=== PATIENT | male | born 1940 | race Caucasian/White ===

== ENCOUNTER 2016-05-18 06:00 | Day surgery (SDC) | payer OTHER ==
[~2016-05-18 06:00] MED LIST: ACETAMINOPHEN 325 MG ONE
[2016-05-18] MEDS: PROPARACAINE HCL 0.5% OPHTHALMIC SOL ONE ×3 (06:28→07:42)
[2016-05-18] MEDS: CYCLOPENTOLATE 1% SOL ONE ×2 (06:28→06:47)
[2016-05-18] MEDS: PHENYLEPHRINE HCL 10% OPHTHAL SOL ONE ×2 (06:28→06:47)
[2016-05-18] MEDS: NEPAFENAC 1.7 ML DROPS.SUSP LEFTEYE ONE ×2 (06:29→06:47)
[2016-05-18] MEDS: GATIFLOXACIN 2.5 ML DROP SOL LEFTEYE ONE ×4 (06:29→08:20)
[2016-05-18] MEDS ORDERED: MIDAZOLAM 2 MG/2 ML SOL ONE (07:03)
[2016-05-18] MEDS ORDERED: FENTANYL CITRATE 50 MCG/ML SOL ONE (07:03)
[2016-05-18] MEDS ORDERED: BSS W/ 0.25MG P.F. EPI 1 BOTTLE ONE (07:04)
[2016-05-18] MEDS ORDERED: LIDOCAINE HCL 1% MPF SOL ONE (07:04)
[2016-05-18] MEDS ORDERED: POVIDONE IODINE 5% SOL ONE (07:04)
[2016-05-18] MEDS ORDERED: TRYPAN BLUE 0.5 ML SOL IO ONE (07:04)
[2016-05-18] MEDS ORDERED: ACETAZOLAMIDE 500 MG CER ONE (07:55)
[2016-05-18 08:38] VITALS: PULSE 70; RESP 18; TEMP 97.6
[2016-05-18 08:47] VITALS: BP 158/84; O2SAT 94
== END 2016-05-18 09:10 | disposition home or self-care (01) | DRG 125 ==
LOC: SURG 06:00
PROVIDERS: ATTEND Ophthalmology
DX: H25.9 Unspecified age-related cataract (principal)
CPT/HCPCS: J2250; J3010; J2001

== ENCOUNTER → 2016-06-15 | Day surgery (SDC) | payer OTHER ==
[~2016-06-15] MED LIST changes: +ACETAZOLAMIDE 500 MG CER ONE; +BSS W/ 0.25MG P.F. EPI 1 BOTTLE ONE; +FENTANYL CITRATE 50 MCG/ML SOL ONE; +GATIFLOXACIN 2.5 ML DROP SOL RIGHTEYE ONE; +KETOROLAC 0.5% OPTH 60 DROP SOL ONE; +KETOROLAC/HOME 0.5% SOL RIGHTEYE ONE; +LIDOCAINE HCL 1% MPF SOL ONE; +MIDAZOLAM 2 MG/2 ML SOL ONE; +NEPAFENAC 1.7 ML DROPS.SUSP RIGHTEYE ONE; +POVIDONE IODINE 5% SOL ONE; +TRYPAN BLUE 0.5 ML SOL IO ONE
[2016-06-15] MEDS: PHENYLEPHRINE HCL 10% OPHTHAL SOL ONE ×2 (06:27→06:44)
[2016-06-15] MEDS: PROPARACAINE HCL 0.5% OPHTHALMIC SOL ONE ×3 (06:27→07:25)
[2016-06-15] MEDS: CYCLOPENTOLATE 1% SOL ONE ×2 (06:28→06:44)
[2016-06-15 06:40] VITALS: O2SAT 97
[2016-06-15] MEDS: GATIFLOXACIN 2.5 ML DROP SOL RIGHTEYE ONE ×2 (06:45→08:02)
[2016-06-15 08:23] VITALS: RESP 18; TEMP 97.6
[2016-06-15 08:30] VITALS: BP 160/96; PULSE 58
== END | disposition home or self-care (01) | DRG 125 ==
LOC: SURG 06:10
PROVIDERS: ATTEND Ophthalmology
DX: H25.9 Unspecified age-related cataract (principal)
CPT/HCPCS: J2250; J3010; J2001